=== PATIENT | male | born 1980 | race Caucasian/White ===

== ENCOUNTER 2018-06-16 22:50 | Inpatient (IN) | payer MEDICAID ==
[~2018-06-16] VITALS: Ht 175.3 cm; Wt 69.0 kg
[2018-06-16] MEDS ORDERED: FAMOTIDINE 20MG/2ML VIAL IV STA (23:30)
[2018-06-16] MEDS ORDERED: ONDANSETRON HCL 4MG/2ML INJ IV STA (23:30)
[2018-06-16] MEDS ORDERED: MORPHINE SULFATE 4 MG/ML CPJ (NOT FOR IM USE) IV STA (23:30)
[2018-06-16] MEDS ORDERED: SODIUM CHLORIDE 0.9% 1,000 ML IV ONE (23:30)
[2018-06-16 23:47] LABS: BASOPHILS % 0.5 % (0.0-2.0); EOSINOPHILS % 2.3 % (0.0-5.0); HEMATOCRIT. 34.5 % (42.0-52.0); HEMOGLOBIN. 11.1 g/dL (14.0-18.0); LYMPHOCYTES % 19.7 % (20.0-50.0); MEAN CORPUSCULAR HEMOGLOBIN 24.6 pg (28.0-32.0); MEAN CORPUSCULAR VOLUME 76.6 fL (80.0-94.0); MEAN PLATELET VOLUME 7.5 fl (7.4-10.4); MONOCYTES % 5.2 % (2.0-8.0); NEUTROPHILS % 72.3 % (40.0-76.0); PLATELET 520 x1000/uL (130-400); RED CELL DISTRIBUTION WIDTH 18.2 % (11.6-14.6)
[2018-06-16 23:48] LABS: CHLORIDE 106 mEq/L (98-107)
[2018-06-16 23:51] LABS: INR 0.9; PROTHROMBIN TIME 9.7 sec (9.6-11.0)
[2018-06-16 23:52] LABS: ETHANOL BLOOD < 10 mg/dL
[2018-06-17 00:17] LABS: CLARITY URINE CLEAR (CLEAR); COLOR URINE YELLOW (YELLOW); KETONES URINE NEGATIVE (NEGATIVE); LEUKOCYTE ESTERASE URINE NEGATIVE (NEGATIVE); NITRITE URINE NEGATIVE (NEGATIVE); OCCULT BLOOD URINE NEGATIVE (NEGATIVE); PROTEIN URINE NEGATIVE (NEGATIVE); SPECIFIC GRAVITY URINE 1.006 (1.005-1.030); UROBILINOGEN URINE 0.2 E.U./dL (0.2-1.0)
[2018-06-17 00:41] LABS: *AMPHETAMINES SCREEN URINE NEGATIVE (NEGATIVE); *BARBITURATES SCREEN URINE NEGATIVE (NEGATIVE); *BENZODIAZEPINES SCREEN URINE NEGATIVE (NEGATIVE); *COCAINE SCREEN URINE NEGATIVE (NEGATIVE); METHADONE URINE SCREEN NEGATIVE (NEGATIVE); OPIATES URINE SCREEN NEGATIVE (NEGATIVE); PHENCYCLIDINE URINE SCREEN NEGATIVE (NEGATIVE)
[2018-06-17 00:42] LABS: CANNABINOID URINE SCREEN NEGATIVE (NEGATIVE)
[2018-06-17] MEDS ORDERED: DIATR MEGLU/DIATRIZOATE SOLN 30ML ONE (02:31)
[2018-06-17] MEDS ORDERED: IOHEXOL-300 100 ML BOTTLE ONE (03:53)
[2018-06-17] MEDS ORDERED: CLONIDINE 0.1MG TABLET PO PRN ×2 (09:00→17:15)
[2018-06-17] MEDS ORDERED: LORAZEPAM 0.5MG TABLET PO PRN ×2 (09:00→17:15)
[2018-06-17] MEDS ORDERED: ACETAMINOPHEN 325MG TABLET PO PRN ×2 (09:00→17:15)
[2018-06-17] MEDS ORDERED: IPRATROPIUM/ALBUTEROL 0.5-3(2.5)MG/3ML NEB INH PRN ×2 (09:00→17:15)
[2018-06-17] MEDS ORDERED: ONDANSETRON HCL 4MG/2ML INJ IV PRN ×2 (09:00→17:15)
[2018-06-17] MEDS ORDERED: DOCUSATE SODIUM 100MG CAPSULE PO PRN ×2 (09:00→17:15)
[2018-06-17] MEDS: HYDROCODONE/ACETAMINOPHEN 5/325MG TABLET PO PRN ×2 (10:04→15:34)
[2018-06-17 10:27] LABS: TOTAL IRON BINDING CAPACITY 456 ug/dL (250-450)
[2018-06-17 11:14] LABS: FERRITIN < 5 ng/mL (22-322)
[2018-06-17 11:24] LABS: FOLIC ACID (FOLATE) SERUM > 20.00 ng/mL (>5.38); VITAMIN B12 SERUM 321 pg/mL (211-911)
[2018-06-17] MEDS: SODIUM CHLORIDE 0.9% 1,000 ML IV SCH (17:14)
[2018-06-17] MEDS ORDERED: HYDROCODONE/ACETAMINOPHEN 5/325MG TABLET PO PRN (17:15)
[2018-06-17] MEDS: MORPHINE SULFATE 4 MG/ML CPJ (NOT FOR IM USE) IV PRN (19:37)
[2018-06-17] MEDS ORDERED: METRONIDAZOLE 500 MG PREMIX 100 ML IV SCH (19:45)
[2018-06-17] MEDS ORDERED: LEVOFLOXACIN 500MG PREMIX 100 ML IV SCH (19:45)
[2018-06-17 20:00] VITALS: BP 112/60
[2018-06-17 21:30] VITALS: BP 112/60
[2018-06-17] MEDS: PANTOPRAZOLE SODIUM 40 MG/VIAL IV SCH (22:00)
[2018-06-17] MEDS: METHYLPREDNISOLONE SOD SUCC 40 MG/ML VIAL IV SCH (22:00)
[2018-06-17] MEDS: METRONIDAZOLE 500 MG PREMIX 100 ML IV SCH (22:00)
[2018-06-17] MEDS: QUETIAPINE FUMARATE 25MG TABLET PO SCH (22:00)
[2018-06-18] VITALS: BP 130/78
[2018-06-18] MEDS: MORPHINE SULFATE 4 MG/ML CPJ (NOT FOR IM USE) IV PRN ×6 (00:07→22:39)
[2018-06-18] MEDS: QUETIAPINE FUMARATE 25MG TABLET PO SCH (00:11)
[2018-06-18 04:00] VITALS: BP 122/64
[2018-06-18] MEDS: METHYLPREDNISOLONE SOD SUCC 40 MG/ML VIAL IV SCH ×3 (06:04→22:38)
[2018-06-18] MEDS: METRONIDAZOLE 500 MG PREMIX 100 ML IV SCH ×3 (06:06→21:56)
[2018-06-18 08:00] VITALS: BP 103/62
[2018-06-18 08:15] LABS: BASOPHILS % 0.2 % (0.0-2.0); EOSINOPHILS % 0.1 % (0.0-5.0); HEMATOCRIT. 35.9 % (42.0-52.0); HEMOGLOBIN. 11.6 g/dL (14.0-18.0); LYMPHOCYTES % 9.5 % (20.0-50.0); MEAN PLATELET VOLUME 8.2 fl (7.4-10.4); MONOCYTES % 1.1 % (2.0-8.0); NEUTROPHILS % 89.1 % (40.0-76.0); PLATELET 568 x1000/uL (130-400); RED BLOOD CELL COUNT 4.66 mill/uL (4.7-6.1)
[2018-06-18 09:07] LABS: CHLORIDE 103 mEq/L (98-107)
[2018-06-18 09:15] LABS: PHOSPHORUS 4.3 mg/dL (2.5-4.9)
[2018-06-18] MEDS: IRON SUCROSE COMPLEX 100 MG/5 ML ML IV SCH (10:02)
[2018-06-18] MEDS: PANTOPRAZOLE SODIUM 40 MG/VIAL IV SCH ×2 (10:02→21:56)
[2018-06-18] MEDS: SODIUM CHLORIDE 0.9% 1,000 ML IV SCH ×2 (10:06→18:07)
[2018-06-18] MEDS ORDERED: CITA40TA22 MT (10:20)
[2018-06-18] MEDS ORDERED: LORA2TAB2 MT (10:20)
[2018-06-18] MEDS ORDERED: GABA-533 MT (10:20)
[2018-06-18] MEDS ORDERED: QUET100T MT (10:21)
[2018-06-18] MEDS ORDERED: LACTULOSE 20G/30ML UDC PO PRN (11:15)
[2018-06-18 12:00] VITALS: BP 111/65
[2018-06-18] MEDS: GABAPENTIN 400MG CAPSULE PO SCH ×3 (13:32→21:56)
[2018-06-18] MEDS: CITALOPRAM HYDROBROMIDE 20MG TABLET PO SCH (13:33)
[2018-06-18] MEDS: NICOTINE 21MG PATCH TD SCH (13:39)
[2018-06-18 15:59] VITALS: BP 132/65
[2018-06-18] MEDS: LORAZEPAM 1MG TABLET PO SCH (18:27)
[2018-06-18 20:00] VITALS: BP 121/65
[2018-06-18] MEDS: LEVOFLOXACIN 500MG PREMIX 100 ML IV SCH ×2 (21:55)
[2018-06-18] MEDS: QUETIAPINE FUMARATE 100MG TABLET PO SCH (21:56)
[2018-06-19] VITALS: BP 111/47
[2018-06-19] MEDS: METRONIDAZOLE 500 MG PREMIX 100 ML IV SCH ×3 (06:12→22:03)
[2018-06-19] MEDS: METHYLPREDNISOLONE SOD SUCC 40 MG/ML VIAL IV SCH ×3 (06:12→22:02)
[2018-06-19] MEDS: MORPHINE SULFATE 4 MG/ML CPJ (NOT FOR IM USE) IV PRN ×2 (06:15→10:36)
[2018-06-19] MEDS: SODIUM CHLORIDE 0.9% 1,000 ML IV SCH ×2 (06:37→17:18)
[2018-06-19 08:00] VITALS: BP 124/59
[2018-06-19] MEDS: HYDROCODONE/ACETAMINOPHEN 5/325MG TABLET PO PRN ×2 (08:50→20:10)
[2018-06-19] MEDS: LORAZEPAM 1MG TABLET PO SCH ×2 (08:50→17:12)
[2018-06-19] MEDS: CITALOPRAM HYDROBROMIDE 20MG TABLET PO SCH (08:51)
[2018-06-19] MEDS: NICOTINE 21MG PATCH TD SCH (08:51)
[2018-06-19] MEDS: PANTOPRAZOLE SODIUM 40 MG/VIAL IV SCH ×2 (08:51→22:02)
[2018-06-19] MEDS: IRON SUCROSE COMPLEX 100 MG/5 ML ML IV SCH (08:51)
[2018-06-19] MEDS: GABAPENTIN 400MG CAPSULE PO SCH ×4 (08:54→22:02)
[2018-06-19 11:49] VITALS: BP 122/75
[2018-06-19] MEDS: HYDROMORPHONE HCL/PF 2MG/ML CPJ IV PRN ×3 (13:23→22:20)
[2018-06-19 16:00] VITALS: BP 136/64
[2018-06-19 20:00] VITALS: BP 109/64
[2018-06-19] MEDS: QUETIAPINE FUMARATE 100MG TABLET PO SCH (22:02)
[2018-06-19] MEDS: LEVOFLOXACIN 500MG PREMIX 100 ML IV SCH (22:03)
[2018-06-20] VITALS: BP 112/66
[2018-06-20 04:00] VITALS: BP 118/72
[2018-06-20] MEDS: METRONIDAZOLE 500 MG PREMIX 100 ML IV SCH ×2 (05:34→14:41)
[2018-06-20] MEDS: METHYLPREDNISOLONE SOD SUCC 40 MG/ML VIAL IV SCH ×2 (05:35→13:19)
[2018-06-20] MEDS: HYDROMORPHONE HCL/PF 2MG/ML CPJ IV PRN ×2 (05:37→12:05)
[2018-06-20 07:03] LABS: HEMATOCRIT. 30.9 % (42.0-52.0); MEAN CORPUSCULAR HEMOGLOBIN 24.8 pg (28.0-32.0); MEAN CORPUSCULAR VOLUME 76.5 fL (80.0-94.0); MEAN PLATELET VOLUME 8.4 fl (7.4-10.4); PLATELET 494 x1000/uL (130-400); RED BLOOD CELL COUNT 4.04 mill/uL (4.7-6.1); RED CELL DISTRIBUTION WIDTH 17.6 % (11.6-14.6)
[2018-06-20 07:09] LABS: CHLORIDE 104 mEq/L (98-107)
[2018-06-20 08:00] VITALS: BP 128/63
[2018-06-20] MEDS: IRON SUCROSE COMPLEX 100 MG/5 ML ML IV SCH (09:17)
[2018-06-20] MEDS: PANTOPRAZOLE SODIUM 40 MG/VIAL IV SCH (09:17)
[2018-06-20] MEDS: LORAZEPAM 1MG TABLET PO SCH (09:17)
[2018-06-20] MEDS: CITALOPRAM HYDROBROMIDE 20MG TABLET PO SCH (09:18)
[2018-06-20] MEDS: GABAPENTIN 400MG CAPSULE PO SCH ×2 (09:18→13:19)
[2018-06-20] MEDS: NICOTINE 21MG PATCH TD SCH (09:18)
[2018-06-20] MEDS: HYDROCODONE/ACETAMINOPHEN 5/325MG TABLET PO PRN ×2 (09:34→14:41)
[2018-06-20 12:00] VITALS: BP 110/71
[2018-06-20 13:07] LABS: PLATELET ESTIMATE INCREASED
[2018-06-20 15:48] VITALS: BP 110/71
[2018-06-21 09:12] LABS: SACCHAROMYCES CEREVISIAE IGM <20.0 Units (0.0-24.9)
[2018-06-21 13:10] LABS: ATYPICAL pANCA <1:20 titer (Neg:<1:20)
[2018-06-22 10:13] LABS: SACCHAROMYCES CEREVISIAE IGG 22.2 Units (0.0-24.9)
== END 2018-06-20 16:20 | disposition home or self-care (01) | DRG 245 ==
LOC: ER 23:08 → 8WST 06-17 05:19 → ENRESERV 06-17 07:42 → CANRESERV 06-17 07:42 → ENRESERV 06-17 19:45 → 8WST 06-18 16:49
PROVIDERS: ADMIT Internal Medicine; ATTEND Internal Medicine
DX: K51.80 Other ulcerative colitis without complications (principal); F20.9 Schizophrenia, unspecified; D50.9 Iron deficiency anemia, unspecified; A09 Infectious gastroenteritis and colitis, unspecified; F11.90 Opioid use, unspecified, uncomplicated; D47.3 Essential (hemorrhagic) thrombocythemia; E53.8 Deficiency of other specified B group vitamins; F17.200 Nicotine dependence, unspecified, uncomplicated; F17.210 Nicotine dependence, cigarettes, uncomplicated; R79.89 Other specified abnormal findings of blood chemistry; Z59.0 Homelessness; F41.9 Anxiety disorder, unspecified; F15.90 Other stimulant use, unspecified, uncomplicated
CPT/HCPCS: 36415; 74018; 74176; 74177; 80048; 80305; 80320; 82270; 82607; 82728; 82746; 83540; 83550; 83735; 84100; 85651; 86140; 86256; 86671; 87015; 87045; 87427; 87449; 99285; C9113; G0378; J1170; J1956; J2270; J2405; J2920; J3490; J7030; J7050; Q9963; Q9967; G0480